=== PATIENT | male | born 1980 | race Caucasian/White ===

== ENCOUNTER 2017-12-11 17:11 | Emergency (ER) | payer OTHER ==
[~2017-12-11] VITALS: Ht 182.9 cm; Wt 96.6 kg
[2017-12-11] MEDS ORDERED: LISINOPRIL10 MG PO (17:21)
[2017-12-11] MEDS ORDERED: BACTRIM DS TAB1 EACH PO (17:21)
[2017-12-11] MEDS ORDERED: LANTUS100 UNIT/M SUBQ (17:22)
[2017-12-11] MEDS ORDERED: HUMALOG100 UNIT/1 SUBQ ×2 (17:22→18:56)
[2017-12-11] MEDS ORDERED: PERCOCET PO ×2 (17:22)
[2017-12-11 18:00] LABS: ABSOLUTE BASOPHILS 0.1 thou/uL (0.0-0.2); ABSOLUTE EOSINOPHILS 0.2 thou/uL (0.0-0.7); ABSOLUTE LYMPHOCYTES 2.5 thou/uL (0.8-5.3); ABSOLUTE MONOCYTES 0.5 thou/uL (0.0-1.2); ABSOLUTE NEUTROPHILS 7.3 thou/uL (1.6-8.1); BASOPHILS 0.9 %; EOSINOPHILS 2.3 %; HEMATOCRIT 36.3 % (42.0-52.0); HEMOGLOBIN 12.2 gm/dL (14.0-18.0); LYMPHOCYTES 23.5 %; MCH 27.5 pg (26.0-34.0); MCHC 33.7 g/dL (28.0-37.0); MCV 81.6 fL (80.0-100.0); MONOCYTES 4.4 %; MPV 7.1 fl. (7.2-11.1); NUCLEATED RBCS 0 /100WBC; PLATELET COUNT* 444 thou/uL (150-400); POLYS 68.9 %; RBC 4.45 mil/uL (4.50-6.00); RDW-CV 14.3 % (10.5-14.5); WBC 10.5 thou/uL (4.0-11.0)
[2017-12-11 18:06] LABS: ANION GAP 7 mmol/L (7-16); BUN 12 mg/dL (7-18); CALCIUM 8.9 mg/dL (8.5-10.1); CHLORIDE 98 mmol/L (98-107); CO2 26 mmol/L (21-32); CREATININE 0.8 mg/dL (0.6-1.3); GLUCOSE 431 mg/dL (70-99); POTASSIUM 3.9 mmol/L (3.5-5.1); SODIUM 131 mmol/L (136-145)
[2017-12-11 18:11] LABS: ALBUMIN 3.1 g/dL (3.4-5.0); ALKALINE PHOSPHATASE 131 U/L (46-116); APTT 26.1 Seconds (25.0-31.3); PROTIME 9.9 Seconds (9.20-11.50); SGOT 17 U/L (15-37); SGPT 31 U/L (30-65); TOTAL BILIRUBIN 0.2 mg/dL (<0.1-1.0); TOTAL PROTEIN 8.1 g/dL (6.4-8.2)
[2017-12-11 18:35] LABS: BE 0.9 mmol/L (-2 to +3); HCO3 23.8 mmol/L (22.0-26.0); PCO2 32.7 mmHg (35.0-45.0); PO2 101.9 mmHg (75.0-100.0)
[2017-12-11] MEDS ORDERED: LANTUS SUBQ (18:56)
[2017-12-11] MEDS ORDERED: KEFLEX500 M1 PO (18:56)
[2017-12-11 19:20] VITALS: BP 141/90
[2017-12-12] MEDS ORDERED: NORCO 5-325 TA1 EACH PO (08:05)
== END 2017-12-11 19:22 | disposition home or self-care (01) ==
LOC: M.ERS 17:11
PROVIDERS: Nurse Practitioner Family
DX: Z48.00 Encounter for change or removal of nonsurgical wound dressing (principal); E11.65 Type 2 diabetes mellitus with hyperglycemia; I10 Essential (primary) hypertension; E78.00 Pure hypercholesterolemia, unspecified; F17.200 Nicotine dependence, unspecified, uncomplicated; Z86.14 Personal history of Methicillin resistant Staphylococcus aureus infection; Z79.4 Long term (current) use of insulin

== ENCOUNTER 2017-12-12 04:24 | Emergency (ER) | payer OTHER ==
[~2017-12-12] VITALS: Ht 182.9 cm; Wt 88.5 kg
[~2017-12-12 04:24] MED LIST: BACTRIM DS TAB1 EACH PO; HUMALOG100 UNIT/1 SUBQ; KEFLEX500 M1 PO; LANTUS SUBQ; LANTUS100 UNIT/M SUBQ; LISINOPRIL10 MG PO; PERCOCET PO
[2017-12-12 05:11] LABS: ABSOLUTE BASOPHILS 0.1 thou/uL (0.0-0.2); ABSOLUTE EOSINOPHILS 0.2 thou/uL (0.0-0.7); ABSOLUTE LYMPHOCYTES 3.3 thou/uL (0.8-5.3); ABSOLUTE MONOCYTES 0.5 thou/uL (0.0-1.2); ABSOLUTE NEUTROPHILS 7.4 thou/uL (1.6-8.1); BASOPHILS 0.8 %; EOSINOPHILS 1.9 %; HEMOGLOBIN 11.7 gm/dL (14.0-18.0); LYMPHOCYTES 28.8 %; MCH 27.4 pg (26.0-34.0); MCHC 33.5 g/dL (28.0-37.0); MCV 81.9 fL (80.0-100.0); MONOCYTES 4.4 %; MPV 6.8 fl. (7.2-11.1); NUCLEATED RBCS 0 /100WBC; PLATELET COUNT* 421 thou/uL (150-400); POLYS 64.1 %; RBC 4.28 mil/uL (4.50-6.00); RDW-CV 14.1 % (10.5-14.5); WBC 11.6 thou/uL (4.0-11.0)
[2017-12-12 05:32] LABS: CALCIUM 8.8 mg/dL (8.5-10.1); CREATININE 0.8 mg/dL (0.6-1.3); POTASSIUM 3.3 mmol/L (3.5-5.1)
[2017-12-12 05:46] LABS: BE -1.4 mmol/L (-2 to +3); HCO3 22.4 mmol/L (22.0-26.0); PCO2 VENOUS 34.3 mmHg (41.0-51.0); PO2 VENOUS 45.8 mmHg (35.0-45.0)
[2017-12-12] MEDS ORDERED: NORCO 5-325 TA1 EACH PO (08:05)
[2017-12-12 08:59] VITALS: BP 136/84
== END 2017-12-12 09:02 | disposition home or self-care (01) ==
LOC: M.ERS 04:24
PROVIDERS: Emergency Medicine Emergency Medical Services
DX: L02.212 Cutaneous abscess of back [any part, except buttock and flank] (principal); I10 Essential (primary) hypertension; E11.9 Type 2 diabetes mellitus without complications; E78.00 Pure hypercholesterolemia, unspecified; Z86.14 Personal history of Methicillin resistant Staphylococcus aureus infection; Z79.4 Long term (current) use of insulin